=== PATIENT | female | born 1980 | race Caucasian/White ===

== ENCOUNTER 2019-06-25 14:20 | Emergency (ER) | payer SELFPAY ==
[~2019-06-25] VITALS: Ht 160 cm; Wt 54.0 kg
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
--- NOTE | 2019-06-25 14:49 | NUR ---
LIANG GARCIA CALLED FOR EVAL
--- NOTE | 2019-06-25 14:50 | NUR ---
EDUCATIONAL ADMINISTRATOR AT BEDSIDE
--- NOTE | 2019-06-25 14:54 | NUR ---
CALLED NEHEMIAH [phone] DIRECTOR CHILD [id number] THEY WILL COME BY.
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
--- NOTE | 2019-06-25 16:10 | NUR ---
NEHEMIAH NEWBY #[id number] AND ELISABETH #[id number] AT BEDSIDE
--- NOTE | 2019-06-25 17:21 | NUR ---
Patient discharged to home in stable condition. Written and verbal after care instructions given. Patient verbalizes understanding of instruction.
[2019-06-25 17:22] VITALS: BP 112/67
== END 2019-06-25 17:22 | disposition home or self-care (01) ==
LOC: ER 14:22
DX: F41.9 Anxiety disorder, unspecified (principal); F43.20 Adjustment disorder, unspecified; R00.0 Tachycardia, unspecified; F40.9 Phobic anxiety disorder, unspecified